=== PATIENT | male | born 1940 | race Caucasian/White ===

== ENCOUNTER 2017-05-15 10:32 | Outpatient (CLI) | payer MEDICARE | END 2017-05-15 10:33 | disposition home or self-care (01) | LOC: EKG 10:32 | PROVIDERS: ATTEND Psychiatry & Neurology Neurology | DX: G30.1 Alzheimer's disease with late onset (principal) | CPT/HCPCS: 93005; 93010 ==

== ENCOUNTER 2020-09-21 07:40 | Inpatient (IN) | payer MEDICARE ==
[2020-09-21 08:34] LABS: #Lymphocytes 0.4 thou/uL (1.20-3.40); #Monocytes 0.8 thou/uL (0.11-0.59); #Neutrophils 13.6 thou/uL (1.40-6.50); %Basophils 0.1 % (0.0-1.0); %Eosinophils 0.1 % (0.0-10.0); %Lymphocytes 2.6 % (21.0-51.0); %Monocytes 5.3 % (0.0-10.0); %Neutrophils 91.8 % (42.0-75.0); Hemoglobin 16.7 g/dL (14.0-18.0); Mean Corpuscular HGB CONC 33.5 g/dL (32.0-36.0); Mean Corpuscular Hemoglobin 30.5 pg (27.0-31.0); Mean Corpuscular Volume 90.8 fL (78.0-98.0); Mean Platelet Volume 9.3 fL (7.4-10.4); Platelet Count 87 thou/uL (130-400); RBC Distribution Width 12.5 % (11.5-14.5); Red Blood Cell (RBC) Count 5.49 mill/uL (4.70-6.10); White Blood Cell (WBC) Count 14.8 thou/uL (4.8-10.8)
[2020-09-21 08:55] LABS: ALT (SGPT) 19 U/L (8-55); AST (SGOT) 21 U/L (5-34); Albumin 4.3 g/dL (3.4-4.8); Alkaline Phosphatase 130 U/L (40-110); Anion Gap 14 mmol/L (10-20); BUN (Urea Nitrogen) 18 mg/dL (8.4-25.7); Bilirubin, Total 0.8 mg/dL (0.2-1.2); Calc. Creatinine Clearance 0 mL/min (70-130); Calcium 9.4 mg/dL (7.8-10.44); Carbon Dioxide 24 mmol/L (23-31); Chloride 102 mmol/L (98-107); Globulin 2.8 g/dL (2.4-3.5); Glucose 150 mg/dL (83-110); Potassium 3.1 mmol/L (3.5-5.1); Protein, Total 7.1 g/dL (5.8-8.1); Sodium 137 mmol/L (136-145)
[2020-09-21] MEDS ORDERED: Vancomycin 1 GM/200 ML BAG ONE (09:15)
[2020-09-21] MEDS ORDERED: Cefepime 2 GM VIAL ONE (09:15)
[2020-09-21 09:52] LABS: Bacteria/HPF Rare-Few HPF (None Seen); Bilirubin Negative (Negative); Blood, Urine 2+ (Negative); Clarity Turbid (Clear); Glucose, Urine (Dipstick) Normal (Negative); Ketone, Urine Negative (Negative); Leukocyte 500 Leu/uL (Negative); Nitrite 2+ (Negative); Protein, Urine (Dipstick) 30 mg/dL (Neg-Trace); Specific Gravity, Urine 1.017 (1.002-1.036); Squamous Epithelial None Seen HPF (0-3); Urobilinogen Normal mg/dL (Less than 2); WBC/HPF Greater than 50 HPF (0-3); pH, Urine 5.5 (5.0-9.0)
[2020-09-21 11:20] LABS: SARS-CoV-2 NAA Rapid Test Not Detected (NotDetected)
[2020-09-21 12:03] LABS: Lactic Acid 2.3 mmol/L (0.5-2.2)
[2020-09-21] MEDS ORDERED: Bisacodyl 5 MG TAB PO PRN (12:34)
[2020-09-21] MEDS ORDERED: Ondansetron PF 4 MG/2 ML Vial IVP PRN (12:34)
[2020-09-21] MEDS ORDERED: Potassium Chloride 20 MEQ TAB ONE (15:53)
[2020-09-21] MEDS ORDERED: cefTRIAXone\\ROCEPHIN 1 GM VIAL ONE (15:53)
[2020-09-21] MEDS: Sodium Chloride 0.9% 1,000 ML IV SCH (16:02)
[2020-09-21] MEDS: cefTRIAXone\\ROCEPHIN 1 GM in Sodium Chloride 0.9% 100 ML IVPB SCH (16:02)
[2020-09-21] MEDS: Potassium Chloride 20 MEQ TAB PO SCH ×2 (16:02→17:51)
[2020-09-21] MEDS ORDERED: Acetaminophen 325 MG TAB ONE (16:18)
[2020-09-21] MEDS: Acetaminophen 325 MG TAB PO PRN ×2 (16:20→22:03)
[2020-09-21 17:27] VITALS: BMI 31.9
[2020-09-22] MEDS: Sodium Chloride 0.9% 1,000 ML IV SCH ×2 (05:22→16:28)
[2020-09-22 07:57] LABS: Anion Gap 10 mmol/L (10-20); BUN (Urea Nitrogen) 19 mg/dL (8.4-25.7); Calc. Creatinine Clearance 93 mL/min (70-130); Calcium 8.7 mg/dL (7.8-10.44); Carbon Dioxide 27 mmol/L (23-31); Chloride 105 mmol/L (98-107); Glucose 136 mg/dL (83-110); Potassium 3.7 mmol/L (3.5-5.1); Sodium 138 mmol/L (136-145)
[2020-09-22] MEDS: Enoxaparin Sodium 40 MG/0.4 ML SYRINGE SC SCH (08:25)
[2020-09-22 09:00] LABS: Band 3 % (5-11); Hemoglobin 14.1 g/dL (14.0-18.0); Lymphocytes 11 % (21-51); MDiff Complete? YES; Mean Corpuscular HGB CONC 34.3 g/dL (32.0-36.0); Mean Corpuscular Hemoglobin 31.5 pg (27.0-31.0); Mean Corpuscular Volume 91.7 fL (78.0-98.0); Mean Platelet Volume 9.7 fL (7.4-10.4); Monocytes 4 % (0-10); Neutrophil 81 % (42-75); Platelet Count 75 thou/uL (130-400); Platelet Morphology Comment Appears Decreased; RBC Distribution Width 12.6 % (11.5-14.5); RBC Morphology Normal; Reactive Lymphocytes 1 % (0-10); Red Blood Cell (RBC) Count 4.49 mill/uL (4.70-6.10); White Blood Cell (WBC) Count 12.9 thou/uL (4.8-10.8)
[2020-09-22] MEDS ORDERED: Haloperidol Lactate 5 MG/ML VIAL IM SCH (10:30)
[2020-09-22] MEDS: cefTRIAXone\\ROCEPHIN 1 GM in Sodium Chloride 0.9% 100 ML IVPB SCH (14:28)
[2020-09-22] MEDS: Acetaminophen 325 MG TAB PO PRN (16:27)
[2020-09-23 06:36] LABS: #Lymphocytes 0.8 thou/uL (1.20-3.40); #Monocytes 0.7 thou/uL (0.11-0.59); #Neutrophils 8.7 thou/uL (1.40-6.50); %Basophils 0.1 % (0.0-1.0); %Eosinophils 0.4 % (0.0-10.0); %Lymphocytes 7.4 % (21.0-51.0); %Monocytes 6.7 % (0.0-10.0); %Neutrophils 85.4 % (42.0-75.0); Mean Corpuscular HGB CONC 34.6 g/dL (32.0-36.0); Mean Corpuscular Hemoglobin 31.7 pg (27.0-31.0); Mean Corpuscular Volume 91.6 fL (78.0-98.0); Mean Platelet Volume 9.3 fL (7.4-10.4); Platelet Count 74 thou/uL (130-400); RBC Distribution Width 12.5 % (11.5-14.5); Red Blood Cell (RBC) Count 4.41 mill/uL (4.70-6.10); White Blood Cell (WBC) Count 10.1 thou/uL (4.8-10.8)
[2020-09-23 06:53] LABS: Anion Gap 9 mmol/L (10-20); BUN (Urea Nitrogen) 14 mg/dL (8.4-25.7); Calc. Creatinine Clearance 103 mL/min (70-130); Calcium 8.9 mg/dL (7.8-10.44); Carbon Dioxide 25 mmol/L (23-31); Glucose 123 mg/dL (83-110)
[2020-09-23 06:58] LABS: Chloride 106 mmol/L (98-107); Potassium 3.8 mmol/L (3.5-5.1); Sodium 136 mmol/L (136-145)
[2020-09-23] MEDS: Sodium Chloride 0.9% 1,000 ML IV SCH (08:44)
[2020-09-23] MEDS: Enoxaparin Sodium 40 MG/0.4 ML SYRINGE SC SCH (08:45)
[2020-09-23] MEDS ORDERED: PIMAVANSERIN TARTRATE PO SCH (14:15)
[2020-09-23] MEDS: cefTRIAXone\\ROCEPHIN 1 GM in Sodium Chloride 0.9% 100 ML IVPB SCH (14:21)
[2020-09-23] MEDS ORDERED: cefTRIAXone\\ROCEPHIN 1 GM in Sodium Chloride 0.9% 100 ML IVPB SCH (20:00)
[2020-09-23] MEDS: Acetaminophen 325 MG TAB PO PRN (20:31)
[2020-09-23] MEDS ORDERED: Polyethylene Glycol 3350 17 GM Packet PO SCH (22:00)
[2020-09-24] MEDS: Polyethylene Glycol 3350 17 GM Packet PO SCH (09:09)
[2020-09-24] MEDS: PIMAVANSERIN TARTRATE PO SCH (09:17)
[2020-09-24] MEDS: Enoxaparin Sodium 40 MG/0.4 ML SYRINGE SC SCH (10:33)
[2020-09-24] MEDS: Tamsulosin HCl 0.4 MG CAP PO SCH (20:40)
[2020-09-24] MEDS: Cefdinir 300 MG CAP PO SCH (20:40)
[2020-09-25] MEDS: PIMAVANSERIN TARTRATE PO SCH (08:39)
[2020-09-25] MEDS: Cefdinir 300 MG CAP PO SCH ×2 (08:40→22:15)
[2020-09-25] MEDS: Lisinopril 5 MG TAB PO SCH (08:40)
[2020-09-25] MEDS: Polyethylene Glycol 3350 17 GM Packet PO SCH (08:40)
[2020-09-25] MEDS: Enoxaparin Sodium 40 MG/0.4 ML SYRINGE SC SCH (08:41)
[2020-09-25] MEDS: Tamsulosin HCl 0.4 MG CAP PO SCH (22:15)
[2020-09-26] MEDS: Acetaminophen 325 MG TAB PO PRN (01:16)
[2020-09-26] MEDS: Enoxaparin Sodium 40 MG/0.4 ML SYRINGE SC SCH (08:55)
[2020-09-26] MEDS: Lisinopril 5 MG TAB PO SCH (08:55)
[2020-09-26] MEDS: Cefdinir 300 MG CAP PO SCH ×2 (08:55→21:56)
[2020-09-26] MEDS: PIMAVANSERIN TARTRATE PO SCH (08:56)
[2020-09-26] MEDS: Polyethylene Glycol 3350 17 GM Packet PO SCH (08:56)
[2020-09-26 09:30] LABS: #Eosinphils 0.1 thou/uL (0.0-0.7); #Lymphocytes 0.8 thou/uL (1.20-3.40); #Monocytes 0.6 thou/uL (0.11-0.59); #Neutrophils 5.4 thou/uL (1.40-6.50); %Basophils 0.4 % (0.0-1.0); %Eosinophils 1.7 % (0.0-10.0); %Lymphocytes 11.7 % (21.0-51.0); %Monocytes 8.6 % (0.0-10.0); %Neutrophils 77.4 % (42.0-75.0); Hemoglobin 15.4 g/dL (14.0-18.0); Mean Corpuscular Volume 91.5 fL (78.0-98.0); Platelet Count 105 thou/uL (130-400); RBC Distribution Width 12.3 % (11.5-14.5); Red Blood Cell (RBC) Count 4.81 mill/uL (4.70-6.10)
[2020-09-26 09:32] LABS: Anion Gap 11 mmol/L (10-20); BUN (Urea Nitrogen) 15 mg/dL (8.4-25.7); Calc. Creatinine Clearance 106 mL/min (70-130); Calcium 9.4 mg/dL (7.8-10.44); Carbon Dioxide 25 mmol/L (23-31); Chloride 105 mmol/L (98-107); Glucose 126 mg/dL (83-110); Potassium 4.1 mmol/L (3.5-5.1); Sodium 137 mmol/L (136-145)
[2020-09-26] MEDS: Tamsulosin HCl 0.4 MG CAP PO SCH (21:56)
[2020-09-27] MEDS: Cefdinir 300 MG CAP PO SCH (08:47)
[2020-09-27] MEDS: Enoxaparin Sodium 40 MG/0.4 ML SYRINGE SC SCH (08:47)
[2020-09-27] MEDS: Lisinopril 5 MG TAB PO SCH (08:47)
[2020-09-27] MEDS: PIMAVANSERIN TARTRATE PO SCH (08:47)
[2020-09-27] MEDS: Polyethylene Glycol 3350 17 GM Packet PO SCH (08:48)
[2020-09-27 15:56] VITALS: BP 143/70; TEMP 97.8
== END 2020-09-27 17:30 | disposition home health service (06) | DRG 871 ==
LOC: ERS 07:40 → T4-A 11:06 → UNDOADMIN 11:07 → ERHOLD 11:07 → T4-A 17:20 → ERHOLD 17:20 → UNDODISIN 09-23 17:45
PROVIDERS: ADMIT Internal Medicine; ATTEND Internal Medicine
PROC: 0T9B70Z Drainage of Bladder with Drainage Device, Via Natural or Artificial Opening (ICD-10-PCS; principal; 2020-09-24)
PROC: 0TPBX0Z Removal of Drainage Device from Bladder, External Approach (ICD-10-PCS; 2020-09-25)
DX: A41.51 Sepsis due to Escherichia coli [E. coli] (principal); G93.41 Metabolic encephalopathy; N39.0 Urinary tract infection, site not specified; R44.3 Hallucinations, unspecified; Z66 Do not resuscitate; Z20.822 Contact with and (suspected) exposure to COVID-19; I10 Essential (primary) hypertension; G30.9 Alzheimer's disease, unspecified; F02.80 Dementia in other diseases classified elsewhere, unspecified severity, without behavioral disturbance, psychotic disturbance, mood disturbance, and anxiety; E87.6 Hypokalemia; N40.1 Benign prostatic hyperplasia with lower urinary tract symptoms; R33.8 Other retention of urine; Z78.1 Physical restraint status; Z79.899 Other long term (current) drug therapy; Z79.01 Long term (current) use of anticoagulants
CPT/HCPCS: 0240U; 36415; 71045; 74176; 80048; 80053; 81003; 81015; 83605; 85025; 87040; 87077; 87086; 87186; 93005; J0692; J0696; J1630; J1650; J3370; J3490

== ENCOUNTER 2021-09-27 10:35 | Outpatient (CLI) | payer MEDICARE | END 2021-09-27 10:36 | disposition home or self-care (01) | LOC: BICRAD 10:35 | PROVIDERS: ATTEND Family Medicine | DX: R07.81 Pleurodynia (principal) ==

== ENCOUNTER 2023-01-22 01:49 | Emergency (ER) | payer MEDICARE ==
[2023-01-22 03:57] LABS: Bacteria/HPF None Seen HPF (None Seen); Bilirubin Negative (Negative); Blood, Urine 3+ (Negative); CAUTI Indications for Culture Acute Hematuria; Clarity Turbid (Clear); Glucose, Urine (Dipstick) Normal (Negative); Ketone, Urine Negative (Negative); Leukocyte 500 Leu/uL (Negative); Nitrite 1+ (Negative); Protein, Urine (Dipstick) 30 mg/dL (Neg-Trace); Specific Gravity, Urine 1.007 (1.002-1.036); Squamous Epithelial 0-3 HPF (0-3); Urobilinogen Normal mg/dL (Less than 2); WBC/HPF Greater than 50 HPF (0-3)
[2023-01-22 04:01] LABS: Urine Culture Reflex Yes Yes
[2023-01-22] MEDS ORDERED: cefTRIAXone (ROCEPHIN) 1 GM VIAL ONE (04:06)
[2023-01-22] MEDS ORDERED: Lidocaine 1% PF 5 ML VIAL ONE (04:06)
== END 2023-01-22 04:30 | disposition home or self-care (01) ==
LOC: ERS 01:49
DX: N39.0 Urinary tract infection, site not specified (principal); I10 Essential (primary) hypertension
CPT/HCPCS: 81001; 87077; 87086; 87186; 93005; 96372; J0696

== ENCOUNTER 2023-06-18 18:53 | Inpatient (IN) | payer MEDICARE, OTHER ==
[~2023-06-18 18:53] MED LIST: Iopamidol-370 76% 500 ML MDV (1 ML CHARGE) ONE
[2023-06-18 20:04] LABS: Influenza A by NAA Not Detected (NotDetected); Influenza B by NAA Not Detected (NotDetected); SARS-CoV-2 NAA Rapid Test Not Detected (NotDetected)
[2023-06-18 20:09] LABS: #Monocytes 1.3 thou/uL (0.11-0.59); #Neutrophils 9.9 thou/uL (1.40-6.50); %Basophils 0.2 % (0.0-1.0); %Eosinophils 0.2 % (0.0-10.0); %Lymphocytes 9.4 % (21.0-51.0); %Monocytes 10.6 % (0.0-10.0); %Neutrophils 79.2 % (42.0-75.0); Hematocrit 44.1 % (42.0-52.0); Hemoglobin 15.9 g/dL (14.0-18.0); Mean Corpuscular HGB CONC 36.1 g/dL (32.0-36.0); Mean Corpuscular Hemoglobin 30.9 pg (27.0-31.0); Mean Corpuscular Volume 85.6 fl (78.0-98.0); Mean Platelet Volume 11.1 fL (7.4-10.4); Platelet Count 117 10x3/uL (130-400); RBC Distribution Width 13.2 % (11.5-14.5); Red Blood Cell (RBC) Count 5.15 mill/uL (4.70-6.10); White Blood Cell (WBC) Count 12.5 10x3/uL (4.8-10.8)
[2023-06-18 20:30] LABS: ALT (SGPT) 29 U/L (8-55); AST (SGOT) 55 U/L (5-34); Albumin 4.1 g/dL (3.4-4.8); Alkaline Phosphatase 131 U/L (40-110); Anion Gap 15 mmol/L (10-20); BUN (Urea Nitrogen) 21 mg/dL (8.4-25.7); Calc. Creatinine Clearance 0 mL/min (70-130); Calcium 9.5 mg/dL (7.8-10.44); Carbon Dioxide 22 mmol/L (23-31); Chloride 103 mmol/L (98-107); Estimated GFR 85; Globulin 3.2 g/dL (2.4-3.5); Glucose 144 mg/dL (83-110); Potassium 3.5 mmol/L (3.5-5.1); Protein, Total 7.3 g/dL (5.8-8.1); Sodium 136 mmol/L (136-145)
[2023-06-18 21:18] LABS: Bacteria/HPF None Seen HPF (None Seen); Bilirubin Negative (Negative); Blood, Urine 1+ (Negative); CAUTI Indications for Culture Alt mental st,lethar; Clarity Clear (Clear); Glucose, Urine (Dipstick) Normal (Negative); Ketone, Urine Negative (Negative); Leukocyte Negative Leu/uL (Negative); Nitrite Negative (Negative); Protein, Urine (Dipstick) 30 mg/dL (Neg-Trace); RBC/HPF 0-3 HPF (0-3); Specific Gravity, Urine 1.024 (1.002-1.036); Squamous Epithelial None Seen HPF (0-3); Urobilinogen Normal mg/dL (Less than 2); WBC/HPF 0-3 HPF (0-3); pH, Urine 5.5 (5.0-9.0)
[2023-06-18 22:02] LABS: Urine Culture Reflex No No
[2023-06-18] MEDS ORDERED: Acetaminophen 500 MG TAB ONE (22:41)
[2023-06-19] MEDS ORDERED: cefTRIAXone (ROCEPHIN) 1 GM VIAL ONE (01:57)
[2023-06-19] MEDS ORDERED: Sodium Chloride 0.9% 100 ML ONE (01:57)
[2023-06-19] MEDS ORDERED: Acetaminophen 325 MG TAB PO PRN (02:00)
[2023-06-19] MEDS ORDERED: Ondansetron PF 4 MG/2 ML Vial IVP PRN (02:00)
[2023-06-19] MEDS ORDERED: Ondansetron ODT 4 MG TAB SL PRN (02:00)
[2023-06-19 05:02] LABS: #Eosinphils 0.1 thou/uL (0.0-0.7); #Monocytes 1.3 thou/uL (0.11-0.59); %Basophils 0.3 % (0.0-1.0); %Eosinophils 0.5 % (0.0-10.0); %Lymphocytes 13.9 % (21.0-51.0); %Monocytes 13.1 % (0.0-10.0); %Neutrophils 71.9 % (42.0-75.0); Hematocrit 41.1 % (42.0-52.0); Hemoglobin 14.5 g/dL (14.0-18.0); Mean Corpuscular HGB CONC 35.3 g/dL (32.0-36.0); Mean Corpuscular Volume 87.8 fl (78.0-98.0); Platelet Count 109 10x3/uL (130-400); RBC Distribution Width 13.4 % (11.5-14.5); Red Blood Cell (RBC) Count 4.68 mill/uL (4.70-6.10); White Blood Cell (WBC) Count 9.8 10x3/uL (4.8-10.8)
[2023-06-19 05:51] LABS: Anion Gap 13 mmol/L (10-20); BUN (Urea Nitrogen) 20 mg/dL (8.4-25.7); Calc. Creatinine Clearance 87 mL/min (70-130); Calcium 9.2 mg/dL (7.8-10.44); Carbon Dioxide 24 mmol/L (23-31); Chloride 103 mmol/L (98-107); Estimated GFR 84; Glucose 152 mg/dL (83-110); Potassium 3.5 mmol/L (3.5-5.1); Sodium 136 mmol/L (136-145)
[2023-06-19] MEDS ORDERED: Non-Formulary Item 1 EACH (Quetiapine Fumarate [Seroquel] 50 MG Tablet) PO SCH (09:00)
[2023-06-19] MEDS ORDERED: Non-Formulary Item 1 EACH (Sertraline Hcl [Zoloft] 20 MG/1 ML Ml) PO SCH (09:00)
[2023-06-19] MEDS: Sodium Chloride 0.9% 1,000 ML IV SCH (10:28)
[2023-06-19 10:50] VITALS: BMI 29.7
[2023-06-19] MEDS ORDERED: Enoxaparin 40 MG (0.4 mL) SYRINGE ONE (10:54)
[2023-06-19] MEDS: Sertraline 100 MG TAB PO SCH (10:58)
[2023-06-19] MEDS: QUEtiapine 25 MG TAB PO SCH (10:58)
[2023-06-19] MEDS: Enoxaparin 40 MG (0.4 mL) SYRINGE SC SCH (10:58)
[2023-06-19] MEDS: Memantine 10 MG TAB PO SCH (10:58)
[2023-06-21] MEDS: Lisinopril 5 MG TAB PO SCH (09:29)
[2023-06-22] MEDS: FLU VACC QS2023(65UP)/MF59C/PF 60 MCG/0.5 ML SYRINGE IM ONE (09:43)
[2023-06-23 06:33] LABS: #Eosinphils 0.1 thou/uL (0.0-0.7); #Monocytes 0.6 thou/uL (0.11-0.59); #Neutrophils 4.5 thou/uL (1.40-6.50); %Basophils 0.3 % (0.0-1.0); %Lymphocytes 14.1 % (21.0-51.0); %Monocytes 10.1 % (0.0-10.0); Hematocrit 43.9 % (42.0-52.0); Hemoglobin 14.7 g/dL (14.0-18.0); Mean Corpuscular HGB CONC 33.5 g/dL (32.0-36.0); Mean Corpuscular Hemoglobin 29.6 pg (27.0-31.0); Mean Corpuscular Volume 88.5 fl (78.0-98.0); Mean Platelet Volume 11.5 fL (7.4-10.4); Platelet Count 143 10x3/uL (130-400); Red Blood Cell (RBC) Count 4.96 mill/uL (4.70-6.10)
[2023-06-23 07:58] LABS: Anion Gap 11 mmol/L (10-20); BUN (Urea Nitrogen) 22 mg/dL (8.4-25.7); Calc. Creatinine Clearance 96 mL/min (70-130); Calcium 9.2 mg/dL (7.8-10.44); Carbon Dioxide 28 mmol/L (23-31); Chloride 103 mmol/L (98-107); Estimated GFR 88; Glucose 121 mg/dL (83-110); Potassium 3.7 mmol/L (3.5-5.1); Sodium 138 mmol/L (136-145)
[2023-06-24 04:58] LABS: #Eosinphils 0.1 thou/uL (0.0-0.7); #Monocytes 0.6 thou/uL (0.11-0.59); #Neutrophils 5.2 thou/uL (1.40-6.50); %Basophils 0.4 % (0.0-1.0); %Eosinophils 0.7 % (0.0-10.0); %Lymphocytes 15.4 % (21.0-51.0); %Monocytes 9.1 % (0.0-10.0); %Neutrophils 74.1 % (42.0-75.0); Hematocrit 43.1 % (42.0-52.0); Hemoglobin 14.6 g/dL (14.0-18.0); Mean Corpuscular HGB CONC 33.9 g/dL (32.0-36.0); Mean Corpuscular Hemoglobin 29.7 pg (27.0-31.0); Mean Corpuscular Volume 87.8 fl (78.0-98.0); Mean Platelet Volume 10.8 fL (7.4-10.4); Platelet Count 141 10x3/uL (130-400); RBC Distribution Width 12.9 % (11.5-14.5); Red Blood Cell (RBC) Count 4.91 mill/uL (4.70-6.10)
[2023-06-24 05:19] LABS: Anion Gap 11 mmol/L (10-20); BUN (Urea Nitrogen) 20 mg/dL (8.4-25.7); Calc. Creatinine Clearance 89 mL/min (70-130); Calcium 9.5 mg/dL (7.8-10.44); Carbon Dioxide 26 mmol/L (23-31); Chloride 102 mmol/L (98-107); Estimated GFR 86; Glucose 123 mg/dL (83-110); Potassium 4.1 mmol/L (3.5-5.1); Sodium 135 mmol/L (136-145)
[2023-06-25 06:35] LABS: #Eosinphils 0.1 thou/uL (0.0-0.7); #Monocytes 0.7 thou/uL (0.11-0.59); #Neutrophils 5.2 thou/uL (1.40-6.50); %Basophils 0.3 % (0.0-1.0); %Eosinophils 1.6 % (0.0-10.0); %Lymphocytes 13.8 % (21.0-51.0); %Monocytes 9.3 % (0.0-10.0); %Neutrophils 74.7 % (42.0-75.0); Hematocrit 43.6 % (42.0-52.0); Hemoglobin 14.8 g/dL (14.0-18.0); Mean Corpuscular HGB CONC 33.9 g/dL (32.0-36.0); Mean Corpuscular Hemoglobin 30.4 pg (27.0-31.0); Mean Corpuscular Volume 89.5 fl (78.0-98.0); Mean Platelet Volume 10.7 fL (7.4-10.4); Platelet Count 138 10x3/uL (130-400); RBC Distribution Width 12.9 % (11.5-14.5); Red Blood Cell (RBC) Count 4.87 mill/uL (4.70-6.10)
[2023-06-25 07:01] LABS: Anion Gap 12 mmol/L (10-20); BUN (Urea Nitrogen) 21 mg/dL (8.4-25.7); Calc. Creatinine Clearance 92 mL/min (70-130); Calcium 9.6 mg/dL (7.8-10.44); Carbon Dioxide 27 mmol/L (23-31); Chloride 102 mmol/L (98-107); Estimated GFR 87; Glucose 109 mg/dL (83-110); Potassium 4.1 mmol/L (3.5-5.1); Sodium 137 mmol/L (136-145)
[2023-06-26 00:52] LABS: SARS-CoV-2 N1 Positive; SARS-CoV-2 N2 Positive; SARS-CoV-2 RNAse P1 Positive
[2023-06-30] MEDS ORDERED: Acetaminophen 325 MG TAB PO PRN (08:20)
[2023-06-30] MEDS ORDERED: Ondansetron PF 4 MG/2 ML Vial IVP PRN (08:20)
[2023-06-30] MEDS: Mirtazapine 15 MG TAB PO SCH (09:09)
[2023-06-30] MEDS ORDERED: Guaifenesin DM 100-10/5 ML UDCUP PO PRN (16:53)
[2023-07-01 06:25] LABS: Hematocrit 44.2 % (42.0-52.0); Hemoglobin 15.1 g/dL (14.0-18.0); Mean Corpuscular HGB CONC 34.2 g/dL (32.0-36.0); Mean Corpuscular Hemoglobin 30.2 pg (27.0-31.0); Mean Corpuscular Volume 88.4 fl (78.0-98.0); Platelet Count 233 10x3/uL (130-400); RBC Distribution Width 12.9 % (11.5-14.5); White Blood Cell (WBC) Count 9.6 10x3/uL (4.8-10.8)
[2023-07-01 06:44] LABS: Anion Gap 13 mmol/L (10-20); BUN (Urea Nitrogen) 23 mg/dL (8.4-25.7); Calc. Creatinine Clearance 87 mL/min (70-130); Calcium 9.8 mg/dL (7.8-10.44); Carbon Dioxide 22 mmol/L (23-31); Chloride 103 mmol/L (98-107); Estimated GFR 85; Glucose 113 mg/dL (83-110); Potassium 4.2 mmol/L (3.5-5.1); Sodium 134 mmol/L (136-145)
[2023-07-01 16:51] VITALS: BP 126/78; TEMP 98
== END 2023-07-01 19:35 | DRG 871 ==
LOC: ERS 18:53 → ERHOLD 06-19 01:52 → T4-B 06-19 01:56 → OBSVTOIN 06-21 11:21
PROVIDERS: ADMIT Student in an Organized Health Care Education/Training Program; ATTEND Internal Medicine
PROC: 4A0 Measurement and Monitoring, Physiological Systems, Measurement (ICD-10-PCS; principal; 2023-06-20)
DX: A41.89 Other specified sepsis (principal); G93.41 Metabolic encephalopathy; U07.1 COVID-19; I10 Essential (primary) hypertension; G30.9 Alzheimer's disease, unspecified; Z66 Do not resuscitate; F02.80 Dementia in other diseases classified elsewhere, unspecified severity, without behavioral disturbance, psychotic disturbance, mood disturbance, and anxiety; D69.6 Thrombocytopenia, unspecified; Z11.52 Encounter for screening for COVID-19; Z79.899 Other long term (current) drug therapy
CPT/HCPCS: 36415; 36416; 51701; 51798; 70450; 71045; 72050; 72125; 72170; 74177; 80048; 80053; 81001; 83605; 84145; 85025; 85027; 87040; 87635; 93005; 96372; 96374; G0378; J0696; J1650; J3490; J7050; Q9967